=== PATIENT | male | born 1970 | race Caucasian/White ===

== ENCOUNTER 2017-09-02 15:59 | Emergency (ER) | payer OTHER ==
[2017-09-02 16:12] VITALS: BP 164/94
--- NOTE | 2017-09-02 16:38 | UC ---
Abdominal Pain Male HPI - HPI Summary HPI Summary: C/O epigastric abdominal pain since yesterday at 11:30 AM. Denies, nausea, diaphoresis or SOB. Started with a large fatty lunch. [place] a little better this morning, but did not improve with eating. - History of Current Complaint Chief Complaint: UCAbdominalPain Stated Complaint: ABDOMINAL PAIN Time Seen by Provider: 09/02/17 16:32 Hx Obtained From: Patient Onset/Duration: Sudden Onset, Lasting Days - 1, Still Present Timing: Constant Severity Initially: Mild Severity Currently: Moderate Location: Epigastric Radiates: No Character: Other - pressure like a rock sitting in there. Aggravating Factor(s): Food Alleviating Factor(s): Meds Associated Signs And Symptoms: Positive: Constipation, Decreased Appetite. Negative: Fever, Cough, Chest Pain, Back Pain, Urinary Symptoms, Nausea, Vomiting - Allergies/Home Medications Allergies/Adverse Reactions: Allergies Allergy/AdvReac Type Severity Reaction Status Date / Time No Known Allergies Allergy Verified 09/02/17 16:12 Home Medications: Home Medications Calcium Carbonate CHEW TAB* [Tums*] 500 mg PO BID PRN 09/02/17 [History Confirmed 09/02/17] Cholecalciferol [Vitamin D] 1,000 unit PO SEE INSTRUCTIONS 09/02/17 [History Confirmed 09/02/17] Docusate CAP* [Colace Cap*] 100 mg PO ONCE 09/02/17 [History Confirmed 09/02/17] Ibuprofen TAB* [Advil TAB*] 400 mg PO Q6H PRN 09/02/17 [History Confirmed ] PMH/Surg Hx/FS Hx/Imm Hx Endocrine History: Hypothyroidism - Surgical History Surgical History: Yes Surgery Procedure, Year, and Place: LEFT KNEE ARTHROSOCPY- ACL RECONSTRUCTION. RIGHT KNEE ARTHROSCOPY-ACL RECONSTRUCTION. KNEE ARTHROSCOPY. TONSILLECTOMY AGE 7 - Family History Known Family History: Positive: Cardiac Disease, Diabetes Negative: Hypertension - Social History Occupation: Employed Full-time Lives: With Family Alcohol Use: Weekly Substance Use Type: None Smoking Status (MU): Never Smoked Tobacco Have You Smoked in the Last Year: No Review of Systems Gastrointestinal: Abdominal Pain Is Patient Immunocompromised?: No All Other Systems Reviewed And Are Negative: Yes Physical Exam Triage Information Reviewed: Yes Appearance: Well-Appearing, No Pain Distress, Well-Nourished Vital Signs: Initial Vital Signs Temp 97.5 F 09/02/17 16:04 Pulse 83 09/02/17 16:04 Resp 20 09/02/17 16:04 BP 164/94 09/02/17 16:04 Pulse Ox 99 09/02/17 16:04 Vital Signs Reviewed: Yes Eyes: Positive: Conjunctiva Clear Neck exam: Normal Respiratory Exam: Normal Cardiovascular Exam: Normal Abdomen Description: Positive: Nontender, No Organomegaly, Soft. Negative: McBurney's Point Tenderness, Peritoneal Signs Bowel Sounds: Positive: Present Musculoskeletal Exam: Normal Neurological Exam: Normal Psychological Exam: Normal Skin Exam: Normal Abd Pain Male Course/Dx - Course Course Of Treatment: EKG with no acute changes with pain is very low likelihood of cardiac cause. Probable gastritis but pancreatitis still a possibility with relatively benign exam. - Differential Dx/Clinical Impression Differential Diagnosis/HQI/PQRI: Appendicitis, Constipation, Gall Bladder Disease, Pancreatitis Provider Diagnoses: Epigastric abdominal pain. Discharge - Discharge Plan Condition: Stable Disposition: HOME Prescriptions: Famotidine TAB* [Pepcid 20 MG TAB*] 20 mg PO BID #20 tab Patient Education Materials: Acute Abdominal Pain (ED) Additional Instructions: Stop the peptobismol. For the constipation, use miralax daily.
[2017-09-02] MEDS ORDERED: Famotidine TAB* 20 MG PO ONE (17:04)
[2017-09-03 13:40] LABS: Albumin 4.6 g/dL (3.2-5.2); BUN/Creatinine Ratio 14.8 (8-20); Calcium 9.7 mg/dL (8.6-10.3); EGFR African American 82.6 (>60); EGFR Non-African American 64.2 (>60); Globulin 2.9 g/dL (2-4); Potassium 3.9 mmol/L (3.5-5.0); Total Bilirubin 1.1 mg/dL (0.2-1.0); Total Protein 7.5 g/dL (6.4-8.9)
--- NOTE | 2017-09-04 07:43 | UC ---
Progress - Progress Note Progress Note: PLEASE CALL THE PT. WITH HIS LAB RESULTS ELEVATED LIPASE OF 202 (NORMAL IS 11 - 82) STOP DRINKING ALCOHOL, NO TYLENOL , DECREASE FATTY FOOD CALL HIS PCP TODAY TO BE SEEN ALEX MAY NEED MORE TESTING GO TO ED IF INCREASE IN PAIN / NAUSEA OR VOMITING
== END 2017-09-02 17:19 | disposition home or self-care (01) ==
LOC: UCCORT 15:59
DX: R10.13 Epigastric pain (principal)
CPT/HCPCS: 36415; 80053; 83690; 93005; 99212; A9270-GY; G0463